=== PATIENT | female | born 1990 | race Caucasian/White ===

== ENCOUNTER 2024-03-19 17:29 | Emergency (ER) | payer OTHER ==
[~2024-03-19] VITALS: Ht 162.6 cm; Wt 64.6 kg
[2024-03-19 17:44] VITALS: BP 116/73; PULSE 99; RESP 17; TEMP 98.3; O2SAT 94
[2024-03-19 20:11] LABS: FLU A ANTIGEN negative (NEGATIVE); FLU B ANTIGEN NEGATIVE (NEGATIVE)
[2024-03-19] MEDS: ALBUTEROL 0.083% 2.5 MG/3 ML NEBU INH ONE ×2 (22:02→23:16)
[2024-03-19] MEDS: IPRATROPIUM 0.02% 0.5 MG/2.5 ML NEBU INH ONE ×2 (22:02→23:17)
[2024-03-19 22:03] VITALS: PULSE 81; RESP 18; O2SAT 96
[2024-03-19] MEDS: KETOROLAC 30 MG/ML VIAL IM ONE (22:25)
[2024-03-19] MEDS: ONDANSETRON 4 MG TAB PO ONE (22:26)
[2024-03-19] MEDS: ACETAMINOPHEN EXTRA STRENGTH 500 MG TAB PO ONE (22:26)
[2024-03-19] MEDS ORDERED: AMOX500C25 PO (22:46)
[2024-03-19] MEDS ORDERED: ALBU0.0912 INH (22:46)
[2024-03-19] MEDS: AMOXICILLIN 500 MG CAP PO ONE (22:55)
[2024-03-19] MEDS ORDERED: PRED20TA5 PO (22:57)
[2024-03-19] MEDS: predniSONE 20 MG TAB PO ONE (23:05)
[2024-03-19 23:21] VITALS: PULSE 97; RESP 20; O2SAT 93
[2024-03-19 23:32] VITALS: BP 118/73; PULSE 82; RESP 17; TEMP 98.3; O2SAT 96
== END 2024-03-19 23:32 | disposition home or self-care (01) ==
LOC: MED 17:29
DX: R06.2 Wheezing (principal); R11.2 Nausea with vomiting, unspecified; R05.9 Cough, unspecified; R53.1 Weakness; Z20.822 Contact with and (suspected) exposure to COVID-19
CPT/HCPCS: 71045; 87426; 87804; 94640; 96372; 99284; J1885; J7512; J7613; J7644; Q0162